=== PATIENT | female | born 2000 | race Caucasian/White ===

== ENCOUNTER 2022-09-24 07:40 | Inpatient (IN) | payer OTHER ==
[2022-09-24] VITALS (28 sets, daily range): BP systolic 104–144; BP diastolic 55–91
[~2022-09-24] VITALS: Ht 165.1 cm; Wt 89.2 kg
[2022-09-24] MEDS ORDERED: PRENTAB9 PO (09:25)
[2022-09-24] MEDS ORDERED: COLA100C5 PO (09:26)
[2022-09-24] MEDS ORDERED: DIBU28OI2 TOP (09:27)
[2022-09-24] MEDS ORDERED: HOME MED LIST COMPLETE! XX SCH (09:30)
[2022-09-24] MEDS ORDERED: miSOPROStol 25MCG 1/4 TABLET PO SCH (10:45)
[2022-09-24] MEDS ORDERED: METHYLERGONOVINE MALEATE 0.2 MG/ML VIAL (J2210) IM PRN (10:45)
[2022-09-24] MEDS ORDERED: OXYTOCIN DRIP 30 UNITS in IV 1 EA IV PRN ×4 (10:45)
[2022-09-24] MEDS ORDERED: TRANEXAMIC ACID INJection 1,000 MG in NS 100 ML IV PRN (10:45)
[2022-09-24] MEDS ORDERED: LIDOCAINE 1% MDV 20ML VIAL INFIL PRN (10:45)
[2022-09-24 11:35] LABS: HEMOGLOBIN 12.3 g/dl (12.0-15.5); MEAN CORPUSCULAR HEMOGLOBIN 31.5 pg (27.0-33.0); MEAN CORPUSCULAR HGB CONC 34.2 g/dl (32.0-36.5); MEAN CORPUSCULAR VOLUME 92.3 fl (80.0-96.0); PLATELET COUNT, AUTOMATED 181 10^3/uL (150-450); WHITE BLOOD COUNT 12.2 10^3/uL (4.0-10.0)
[2022-09-24] MEDS ORDERED: LR 1,000 ML IV SCH (16:15)
[2022-09-24] MEDS ORDERED: OXYTOCIN DRIP 30 UNITS in IV 1 EA IV SCH (16:15)
[2022-09-24] MEDS: LR 1,000 ML IV SCH ×3 (18:01→23:01)
[2022-09-24] MEDS ORDERED: NALOXONE INJ 0.4MG/1ML VIAL IV PRN (20:45)
[2022-09-24] MEDS ORDERED: LR 500 ML IV PRN (20:45)
[2022-09-24] MEDS ORDERED: EPIDURAL/PCA KEYS XX PRN (20:45)
[2022-09-24] MEDS ORDERED: ONDANSETRON 4MG 2ML VIAL IV PRN (20:45)
[2022-09-24] MEDS ORDERED: diphenhydrAMINE 50MG/ML VIAL IV PRN (20:45)
[2022-09-24] MEDS: FENTANYL/ROPIVACAINE/NACL BAG 100 ML EPIDURAL SCH (21:17)
[2022-09-25] VITALS (43 sets, daily range): BP systolic 86–130; BP diastolic 53–88
[2022-09-25] MEDS: ePHEDrine SULFATE 25 MG/5 ML(5MG/ML) SYRINGE IVP PRN ×3 (00:52→00:58)
[2022-09-25] MEDS: LR 1,000 ML IV SCH (02:23)
[2022-09-25] MEDS: FENTANYL/ROPIVACAINE/NACL BAG 100 ML EPIDURAL SCH (05:24)
[2022-09-25] MEDS ORDERED: DIBUCAINE 1% OINTMENT 30GM TOP PRN (08:50)
[2022-09-25] MEDS ORDERED: METHYLERGONOVINE MALEATE 0.2 MG TAB PO PRN (08:50)
[2022-09-25] MEDS ORDERED: ACETAMINOPHEN TAB 650MG DOSE (2X325MG) PO PRN (08:50)
[2022-09-25] MEDS ORDERED: IBUPROFEN 600MG TAB PO PRN (08:50)
[2022-09-25] MEDS ORDERED: OXYTOCIN DRIP 30 UNITS in IV 1 EA IV SCH (08:50)
[2022-09-25] MEDS ORDERED: PROCTOFOAM-HC 1% FOAM 10GM CAN PR PRN (09:00)
[2022-09-25] MEDS: PRENATAL VITAMINS CHEWABLE TABLET PO SCH (09:24)
[2022-09-25] MEDS: IBUPROFEN 800 MG TAB PO PRN ×2 (13:23→23:53)
[2022-09-25] MEDS: ACETAMINOPHEN 500 MG TAB PO PRN (18:26)
[2022-09-26 06:22] VITALS: BP 112/79
[2022-09-26] MEDS: PRENATAL VITAMINS CHEWABLE TABLET PO SCH (08:50)
[2022-09-26] MEDS: DOCUSATE SODIUM 100MG CAPSULE PO PRN ×2 (08:50→23:41)
[2022-09-26] MEDS: IBUPROFEN 800 MG TAB PO PRN ×2 (10:03→22:28)
[2022-09-26] MEDS: ACETAMINOPHEN 500 MG TAB PO PRN (12:43)
[2022-09-26 18:00] VITALS: BP 115/80
[2022-09-27 05:59] VITALS: BP 111/80
[2022-09-27] MEDS ORDERED: MEASLES,MUMPS,RUBELLA VACCINE INJ (MMR-II) SC.IMMUN ONE (09:00)
[2022-09-27] MEDS: PRENATAL VITAMINS CHEWABLE TABLET PO SCH (10:00)
[2022-09-27] MEDS: IBUPROFEN 800 MG TAB PO PRN (10:02)
[2022-09-27] MEDS ORDERED: diphenhydrAMINE CREAM 30GM TOP PRN (10:55)
== END 2022-09-27 11:45 | disposition home or self-care (01) | DRG 806 ==
LOC: M LDI 08:48 → M OBS 09-25 11:54
PROVIDERS: ADMIT Obstetrics & Gynecology; ATTEND Advanced Practice Midwife
PROC: 3E0P7GC Introduction of Other Therapeutic Substance into Female Reproductive, Via Natural or Artificial Opening (ICD-10-PCS; 2022-09-24)
PROC: 10907ZC Drainage of Amniotic Fluid, Therapeutic from Products of Conception, Via Natural or Artificial Opening (ICD-10-PCS; 2022-09-24)
PROC: 10E0XZZ Delivery of Products of Conception, External Approach (ICD-10-PCS; principal; 2022-09-25)
PROC: 0HQ9XZZ Repair Perineum Skin, External Approach (ICD-10-PCS; 2022-09-25)
DX: O48.0 Post-term pregnancy (principal); Z37.0 Single live birth; O22.43 Hemorrhoids in pregnancy, third trimester; Z3A.41 41 weeks gestation of pregnancy; O70.0 First degree perineal laceration during delivery; O69.1XX0 Labor and delivery complicated by cord around neck, with compression, not applicable or unspecified; O76 Abnormality in fetal heart rate and rhythm complicating labor and delivery; O69.82X0 Labor and delivery complicated by other cord entanglement, without compression, not applicable or unspecified

== ENCOUNTER 2023-03-07 20:27 | Emergency (ER) | payer OTHER ==
[~2023-03-07] VITALS: Ht 165.1 cm; Wt 79.6 kg
[~2023-03-07 20:27] MED LIST: COLA100C5 PO; DIBU28OI2 TOP; PRENTAB9 PO
[2023-03-07 20:53] LABS: BASO # 0.1 10^3/uL (0.0-0.2); BASO % 0.7 % (0.0-1.0); EOS # 0.1 10^3/uL (0.0-0.5); EOS % 0.9 % (0.0-3.0); HEMATOCRIT 38.8 % (36.0-47.0); HEMOGLOBIN 13.3 g/dl (12.0-15.5); LYMPH # 3.2 10^3/uL (1.5-5.0); LYMPH % 32.3 % (24.0-44.0); MEAN CORPUSCULAR HGB CONC 34.3 g/dl (32.0-36.5); MEAN CORPUSCULAR VOLUME 87.4 fl (80.0-96.0); MONO # 0.5 10^3/uL (0.0-0.8); MONO % 4.8 % (2.0-8.0); NEUTROPHILS # 6.1 10^3/uL (1.5-8.5); PLATELET COUNT, AUTOMATED 214 10^3/uL (150-450); RED BLOOD COUNT 4.44 10^6/uL (4.00-5.40)
[2023-03-07 21:18] LABS: LIPASE 30 U/L (12-53)
[2023-03-07 21:20] LABS: ALKALINE PHOSPHATASE 91 U/L (46-116); ALT/SGPT 22 U/L (7.0-40); AST/SGOT 10 U/L (<34); BILIRUBIN,DIRECT 0.1 MG/DL (<0.4); BILIRUBIN,TOTAL 0.4 MG/DL (0.3-1.2); BLOOD UREA NITROGEN 20 MG/DL (9-23); CALCIUM LEVEL 9.1 MG/DL (8.5-10.1); CARBON DIOXIDE LEVEL 27 MMOL/L (20-31); CHLORIDE LEVEL 103 MMOL/L (98-107); CREATININE FOR GFR 0.69 MG/DL (0.55-1.30); GLOMERULAR FILTRATION RATE > 60.0 (>60); GLUCOSE, FASTING 103 MG/DL (60-100); POTASSIUM SERUM 3.7 MMOL/L (3.5-5.1); SODIUM LEVEL 138 MMOL/L (136-145); TOTAL PROTEIN 6.8 G/DL (5.7-8.2)
[2023-03-07 21:56] LABS: HCG, SERUM QUALITATIVE NEGATIVE (NEGATIVE)
[2023-03-07 22:35] VITALS: BP 114/78; TEMP 96.1; O2SAT 97
[2023-03-07] MEDS ORDERED: KETOROLAC 60MG 2ML VIAL IM ONE (23:15)
[2023-03-07] MEDS ORDERED: diphenhydrAMINE 25MG CAP PO ONE (23:15)
[2023-03-07] MEDS ORDERED: METOCLOPRAMIDE 10MG TAB PO ONE (23:15)
[2023-03-08] MEDS ORDERED: REGL10TA6 PO (00:13)
== END 2023-03-08 00:57 | disposition home or self-care (01) ==
LOC: M ED 20:27
DX: R51.9 Headache, unspecified (principal); R11.0 Nausea; Z87.442 Personal history of urinary calculi
CPT/HCPCS: 80048; 80076; 83690; 84703; 85025; 96372; 99283; J1885

== ENCOUNTER → 2023-06-05 | Outpatient (CLI) | payer OTHER ==
[~2023-06-05] MED LIST changes: +REGL10TA6 PO
== END ==
LOC: M WHC 07:38
DX: N63.10 Unspecified lump in the right breast, unspecified quadrant (principal)

== ENCOUNTER → 2023-09-05 | Outpatient (CLI) | payer OTHER | LOC: M WHC 13:10 | PROVIDERS: ATTEND Family Medicine | DX: N63.13 Unspecified lump in the right breast, lower outer quadrant (principal) ==

== ENCOUNTER → 2024-07-23 | Outpatient (CLI) | payer OTHER | LOC: M WHC 08:00 | PROVIDERS: ATTEND Nurse Practitioner Primary Care | DX: N63.13 Unspecified lump in the right breast, lower outer quadrant (principal); N63.15 Unspecified lump in the right breast, overlapping quadrants ==

== ENCOUNTER 2025-08-16 12:05 | Emergency (ER) | payer OTHER ==
[~2025-08-16] VITALS: Ht 165.1 cm; Wt 56.7 kg
[2025-08-16] MEDS ORDERED: LEXA1TAB (12:38)
[2025-08-16] MEDS ORDERED: BUSP5TA (12:38)
[2025-08-16 13:14] LABS: PLATELET COUNT, AUTOMATED 195 10^3/uL (150-450)
[2025-08-16 13:34] LABS: AMPHETAMINES LEVEL URINE NEGATIVE (NEGATIVE); BARBITURATES URINE NEGATIVE (NEGATIVE); BENZODIAZEPINES URINE NEGATIVE (NEGATIVE); COCAINE METABOLITE URINE NEGATIVE (NEGATIVE); METHADONE URINE NEGATIVE (NEGATIVE); OPIATES URINE NEGATIVE (NEGATIVE); PHENCYCLIDINE URINE NEGATIVE (NEGATIVE)
[2025-08-16 13:36] LABS: CANNABINOIDS URINE POSITIVE (NEGATIVE)
[2025-08-16 13:38] LABS: ALT/SGPT 20 U/L (7.0-40); AST/SGOT 17 U/L (<34); CALCIUM LEVEL 9.3 MG/DL (8.5-10.1); CARBON DIOXIDE LEVEL 28 MMOL/L (20-31); CHLORIDE LEVEL 106 MMOL/L (98-107); CREATININE FOR GFR 0.64 MG/DL (0.55-1.30); GLOMERULAR FILTRATION RATE > 90.0 (>60); POTASSIUM SERUM 4.2 MMOL/L (3.5-5.1); SALICYLATE LEVEL < 3.0 MG/DL (<30); SODIUM LEVEL 142 MMOL/L (136-145)
[2025-08-16 13:40] LABS: ETHYL ALCOHOL (ETHANOL) < 0.003 % (0.000-0.010)
[2025-08-16 14:15] LABS: HCG, SERUM QUALITATIVE NEGATIVE (NEGATIVE)
[2025-08-16 14:56] VITALS: BP 113/62; TEMP 98.8; O2SAT 99
== END 2025-08-16 15:05 | disposition home or self-care (01) ==
LOC: M ED 12:05
DX: F32.A Depression, unspecified (principal); Z87.891 Personal history of nicotine dependence; Z79.899 Other long term (current) drug therapy; Z88.8 Allergy status to other drugs, medicaments and biological substances